=== PATIENT | male | born 1950 | race Caucasian/White ===

== ENCOUNTER 2016-10-15 19:32 | Emergency (ER) | payer BC, MEDICARE ==
[2016-10-15] MEDS ORDERED: Fluorescein Opthalmic Strip ONE (19:40)
--- NOTE | 2016-10-15 20:20 | ERRECORD ---
[facility] EMERGENCY RECORD HPI EYE COMPLAINT (19:59 [facility]) CHIEF COMPLAINT: Patient presents for evaluation of foreign body sensation, Patient presents for evaluation of pain, Patient presents for evaluation of redness. HISTORIAN: History provided by patient, 66M presents with foreign body sensation to primarily the left eye. Was working underneath the car when dust blew into his eyes. Has no visual changes but has the sensation of dust in his eyes, left much more than right. Denies other complaint. MECHANISM OF INJURY: Foreign Body. LOCATION: Symptoms are localized, most severe in the left eye. TIME COURSE: Sudden onset of symptoms, Symptoms are improving. ASSOCIATED WITH: Associated with foreign body sensation, Associated with tearing. ROS (20:02 [facility]) CONSTITUTIONAL: Negative constitutional review of systems, Historian denies chills, denies fever. EYES: Historian reports eye pain, reports eye redness, reports eye discharge, reports tearing. FB sensation L>R. ENT: Negative ears, nose, throat review of systems, Historian denies rhinorrhea, denies sore throat. CARDIOVASCULAR: Negative cardiovascular review of systems, Historian denies chest pain, denies palpitations. RESPIRATORY: Negative respiratory review of systems, Historian denies cough, denies shortness of breath. GI: Negative gastrointestinal review of systems, Historian denies abdominal pain, denies constipation, denies diarrhea, denies nausea, denies vomiting. GENITOURINARY MALE: Negative genitourinary review of systems, Historian denies dysuria, denies hematuria. MUSCULOSKELETAL: Negative musculoskeletal review of systems, Historian denies back pain, denies fall, denies injury, denies neck pain. SKIN: Negative skin review of systems, Historian denies rash, denies skin changes. NEUROLOGIC: Negative neurologic review of systems, Historian denies headache. HEMO/LYMPHATIC: Normal hematologic/lymphatic system review, Historian denies abnormal blood clotting. PAST MEDICAL HISTORY (19:46 [facility]) MEDICAL HISTORY: Notes: Gout, Flu vaccine not up to date, Tetanus not up to date, Pneumococcal vaccine not up to date, Past medical history includes cardiac history, unspecified arrhythmia, Past medical history includes history of hypertension. &a-1R&a+25V*p+0X*o5761I*c202B*c15G*c2P*p-0X&a-25V&a+1R Name: Be Kenney : 1950 M66 MedRec: [id number] AcctNum: [id number] Prepared: TueOct 15, 2016 20:06 by Interface Page 1 of 3 pMD [facility] EMERGENCY RECORD MALE SURGICAL HISTORY: Patient has no surgical history. PSYCHIATRIC HISTORY: No previous psychiatric history. SOCIAL HISTORY: Patient drinks socially, twice a month, Patient denies drug use, Patient is a former tobacco user, smoked cigarettes, Patient quit smoking more than 10 years ago. KNOWN ALLERGIES No Known Drug Allergies CURRENT MEDICATIONS (19:43 [facility]) lisinopril: TABLET : Strength - 20 mg : ORAL Patient Dose: 1 tab(s) Oral once a day (in the morning). VITAL SIGNS (19:39 [facility]AN) VITAL SIGNS: BP: 138/76, Pulse: 60, Resp: 18 (Non-Labored), Temp: 97.7 (Oral), Pain: 6, O2 sat: 98 on Room Air, Time: 10/15/2016 19:39. PHYSICAL EXAM (20:02 [facility]) CONSTITUTIONAL: Vital signs reviewed, Patient afebrile, Pulse normal, Blood pressure normal, Respiratory rate normal, Patient appears non toxic, Patient appears pain free, Patient alert and oriented to person, place and time. HEAD: Head exam normal, Head exam included findings of head atraumatic, normocephalic. EYES: Eye exam included findings of eyelids normal to inspection, Pupils equally round and reactive to light, Extraocular muscles intact, Conjunctiva, injected bilaterally, not edematous, L>R, Atraumatic, Fundoscopic exam normal, Eye exam included findings of anterior chamber clear, Fluorescein uptake normal, no conjunctival foreign body, no corneal foreign body, no corneal abrasion, No obvious abnormalities on exam including fluorescein exam. After anesthesia, eyes were thoroughly irrigated with NS. ENT: ENT exam normal, Ear exam normal, external ear normal, tympanic membranes normal, no bleeding, Pharynx exam normal, Uvula exam normal, Tonsil exam normal, Mouth exam normal, mucous membranes moist, teeth normal. NECK: Neck exam normal, Neck exam included findings of normal range of motion, Trachea midline, no meningeal signs, no cervical adenopathy, no tenderness. RESPIRATORY CHEST: Respiratory and chest exam normal, Respiratory exam included findings of no respiratory distress, Breath sounds clear. CARDIOVASCULAR: Cardiovascular assessment normal, Cardiovascular exam included findings of heart rate regular rate and rhythm, Heart sounds normal. ABDOMEN MALE: Abdominal exam included findings of abdomen nontender, Bowel sounds normal, no distension, no mass, no pulsatile &a-1R&a+25V*p+0X*k1097J*c202B*c15G*c2P*p-0X&a-25V&a+1R Name: Be Kenney : 1950 M66 MedRec: [id number] AcctNum: [id number] Prepared: TueOct 15, 2016 20:06 by Interface Page 2 of 3 pMD [facility] EMERGENCY RECORD masses, no peritoneal signs, no rigidity, no guarding, no rebound, Rovsing's sign absent. BACK: Back exam normal, Back exam included findings of normal inspection, range of motion normal, no tenderness. UPPER EXTREMITY: Upper extremity exam normal, Upper extremity exam included findings of inspection normal, Range of motion normal, Motor strength normal, Sensation intact, Radial pulse normal. LOWER EXTREMITY: Lower extremity exam normal, Lower extremity exam included findings of inspection normal, Range of motion normal, Motor strength normal, Sensation intact, Posterior tibial pulse normal, Pedal pulse normal. NEURO: Neuro exam normal, Neuro exam findings include patient oriented to person, place and time, Speech normal, Gait normal. SKIN: Skin exam normal, Skin exam included findings of skin warm, dry, and normal in color, no rash. PSYCHIATRIC: Psychiatric exam normal, Normal affect. DOCTOR NOTES (20:04 [facility]) TEXT: Patient presented with FB sensation in L>R eye. Exam was normal except for mild conjunctival irritation, but not evidence of abrasion. Irrigation performed. Symptoms should improve with time. PATIENT PLAN: The patient will be discharged, The patient will follow up with primary care physician. PROBLEM LIST No recorded problems DIAGNOSIS (19:58 [facility]) FINAL: PRIMARY: UNSPECIFIED CONJUNCTIVITIS. PRESCRIPTION No recorded prescriptions DISPOSITION PATIENT: Disposition Type: Discharge, Disposition: *Discharge Home. (19:58 [facility]) Condition: Good, Patient left the department. (20:04 [facility]) Mon: CHAPO=MD Nidia, Driss ABURTO=EILEEN Lagunas, Una &a-1R&a+25V*p+0X*c1834Q*c202B*c15G*c2P*p-0X&a-25V&a+1R Name: Be Kenney : 1950 M66 MedRec: [id number] AcctNum: [id number] Prepared: TueOct 15, 2016 20:06 by Interface Page 3 of 3 pMD MTDD
--- NOTE | 2016-10-15 20:22 | PICIS ---
[facility] EMERGENCY RECORD TRIAGE (TueOct 15, 2016 19:42 WJAN) TRIAGE NOTES: Working on car when something blew into left eye, washed eye with saline solution [employer], no relief. (TueOct 15, 2016 19:42 WJAN) PATIENT: NAME: Be Kenney, AGE: 66, GENDER: male, : Tue1950, TIME OF GREET: TueOct 15, 2016 19:33, PREFERRED LANGUAGE: Mosotho, ECODE BILLING MAP: [facility], SSN: [id number], KG WEIGHT: 97.52, , , PERSON ID: [id number], PCP: Shari VELASCO. (TueOct 15, 2016 19:42 WJAN) ETHNICITY: Not or , Zip Code: [address], PHONE: , PAYMENT: [employer]. (19:53) COMPLAINT: Left eye pain. (TueOct 15, 2016 19:42 WJAN) ADMISSION: URGENCY: 4 Non Urgent, ADMISSION SOURCE: Home, TRANSPORT: Walk-in, BED: TRIAGE. (TueOct 15, 2016 19:42 WJAN) ASSESSMENT: Additional Triage notes: Pt reports he may have something in his left eye. Pt A&Ox4, NAD, breathing non-labored. (19:46 [facility]AN) IMMUNIZATIONS: Flu vaccine up to date, Tetanus immunization up to date, Pneumococcal vaccine up to date. (19:46 WJAN) SIRS SCORING: Heart Rate 55-109 (0), Temp range 96.8-101.1 (0), respiratory rate 12-24 (0), Mental Status altered: no (0), Infection or Suspected Infection: No. (19:46 WJAN) TRIAGE SCREENING: Patient denies suicidal ideation, Patient denies presence of domestic violence. (19:46 WJAN) PROVIDERS: TRIAGE NURSE: Una Lagunas RN. (TueOct 15, 2016 19:42 WJAN) VITAL SIGNS: BP 138/76, Pulse 60, Resp 18, (Non-Labored), Temp 97.7, (Oral), Pain 6, O2 Sat 98, on Room Air, Time 10/15/2016 19:39. (19:39 WJAN) KNOWN ALLERGIES No Known Drug Allergies CURRENT MEDICATIONS (19:43 [facility]) lisinopril: TABLET : Strength - 20 mg : ORAL Patient Dose: 1 tab(s) Oral once a day (in the morning). VITAL SIGNS (19:39 [facility]) VITAL SIGNS: BP: 138/76, Pulse: 60, Resp: 18 (Non-Labored), Temp: 97.7 (Oral), Pain: 6, O2 sat: 98 on Room Air, Time: 10/15/2016 19:39. NURSING ASSESSMENT: EYE (19:47 [facility]AN) CONSTITUTIONAL: Patient arrives ambulatory, Gait steady, History obtained from patient, Patient appears comfortable, Patient cooperative, Patient alert, Oriented to person, place and time, Skin warm, Skin dry, Skin normal in color, Mucous membranes pink, Mucous membranes moist, Patient is well-groomed, Patient complains of Left eye pain, Pt reports working on car and something blew into his &a-1R&a+25V*p+0X*h2505L*c202B*c15G*c2P*p-0X&a-25V&a+1R Name: Be Kenney : 1950 M66 MedRec: [id number] AcctNum: [id number] Prepared: TueOct 15, 2016 20:13 by Interface Page 1 of 5 pMD [facility] EMERGENCY RECORD eyes, right eye o longer hurts but left eye has not improved after flushing at home with saline solution. PAIN: Left eye, on a scale 0-10 patient rates pain as 6. EYES: Eye assessment findings include orbits normal, Eye lids normal, Conjunctiva normal, Sclera normal, Cornea clear, Iris normal, Pupils equally round and reactive to light. SAFETY: Side rails up, Cart/Stretcher in lowest position, Family at bedside, Call light within reach, Hospital ID band on. NURSING PROCEDURE: DISCHARGE NOTE (20:02 WJAN) DISCHARGE: Patient discharged to home, ambulating without assistance, family driving, accompanied by //partner, Summary of Care printed/ provided, Patient requested and was provided an electronic copy of Discharge Instructions, Transition record given to patient, Discharge instructions given to patient, Simple or moderate discharge teaching performed, by EILEEN Heart, Notes: Patient instructed to follow up with PCP. Patient instructed to follow medication instructions. Patient instructed to follow discharge teaching. BELONGINGS: Belongings remain with patient, Valuables remain with patient. SAFETY: Side rails up, Cart/Stretcher in lowest position, Family at bedside, Call light within reach, Hospital ID band on. NURSING PROCEDURE: NURSE NOTES (19:45 [facility]) NURSES NOTES: Notes: MD at bedside. HPI EYE COMPLAINT (19:59 [facility]) CHIEF COMPLAINT: Patient presents for evaluation of foreign body sensation, Patient presents for evaluation of pain, Patient presents for evaluation of redness. HISTORIAN: History provided by patient, 66M presents with foreign body sensation to primarily the left eye. Was working underneath the car when dust blew into his eyes. Has no visual changes but has the sensation of dust in his eyes, left much more than right. Denies other complaint. MECHANISM OF INJURY: Foreign Body. LOCATION: Symptoms are localized, most severe in the left eye. TIME COURSE: Sudden onset of symptoms, Symptoms are improving. ASSOCIATED WITH: Associated with foreign body sensation, Associated with tearing. ROS (20:02 [facility]) CONSTITUTIONAL: Negative constitutional review of systems, Historian denies chills, denies fever. EYES: Historian reports eye pain, reports eye redness, reports eye discharge, reports &a-1R&a+25V*p+0X*o0553W*c202B*c15G*c2P*p-0X&a-25V&a+1R Name: Be Kenney : 1950 M66 MedRec: [id number] AcctNum: [id number] Prepared: TueOct 15, 2016 20:13 by Interface Page 2 of 5 pMD [facility] EMERGENCY RECORD tearing. FB sensation L>R. ENT: Negative ears, nose, throat review of systems, Historian denies rhinorrhea, denies sore throat. CARDIOVASCULAR: Negative cardiovascular review of systems, Historian denies chest pain, denies palpitations. RESPIRATORY: Negative respiratory review of systems, Historian denies cough, denies shortness of breath. GI: Negative gastrointestinal review of systems, Historian denies abdominal pain, denies constipation, denies diarrhea, denies nausea, denies vomiting. GENITOURINARY MALE: Negative genitourinary review of systems, Historian denies dysuria, denies hematuria. MUSCULOSKELETAL: Negative musculoskeletal review of systems, Historian denies back pain, denies fall, denies injury, denies neck pain. SKIN: Negative skin review of systems, Historian denies rash, denies skin changes. NEUROLOGIC: Negative neurologic review of systems, Historian denies headache. HEMO/LYMPHATIC: Normal hematologic/lymphatic system review, Historian denies abnormal blood clotting. PAST MEDICAL HISTORY (19:46 [facility]) MEDICAL HISTORY: Notes: Gout, Flu vaccine not up to date, Tetanus not up to date, Pneumococcal vaccine not up to date, Past medical history includes cardiac history, unspecified arrhythmia, Past medical history includes history of hypertension. MALE SURGICAL HISTORY: Patient has no surgical history. PSYCHIATRIC HISTORY: No previous psychiatric history. SOCIAL HISTORY: Patient drinks socially, twice a month, Patient denies drug use, Patient is a former tobacco user, smoked cigarettes, Patient quit smoking more than 10 years ago. PHYSICAL EXAM (20:02 [facility]) CONSTITUTIONAL: Vital signs reviewed, Patient afebrile, Pulse normal, Blood pressure normal, Respiratory rate normal, Patient appears non toxic, Patient appears pain free, Patient alert and oriented to person, place and time. HEAD: Head exam normal, Head exam included findings of head atraumatic, normocephalic. EYES: Eye exam included findings of eyelids normal to inspection, Pupils equally round and reactive to light, Extraocular muscles intact, Conjunctiva, injected bilaterally, not edematous, L>R, Atraumatic, Fundoscopic exam normal, Eye exam included findings of anterior chamber clear, Fluorescein uptake normal, no conjunctival foreign body, no corneal foreign body, no corneal abrasion, No obvious abnormalities on exam including fluorescein exam. After anesthesia, eyes were thoroughly irrigated &a-1R&a+25V*p+0X*q3059X*c202B*c15G*c2P*p-0X&a-25V&a+1R Name: Be Kenney : 1950 M66 MedRec: [id number] AcctNum: [id number] Prepared: TueOct 15, 2016 20:13 by Interface Page 3 of 5 pMD [facility] EMERGENCY RECORD with NS. ENT: ENT exam normal, Ear exam normal, external ear normal, tympanic membranes normal, no bleeding, Pharynx exam normal, Uvula exam normal, Tonsil exam normal, Mouth exam normal, mucous membranes moist, teeth normal. NECK: Neck exam normal, Neck exam included findings of normal range of motion, Trachea midline, no meningeal signs, no cervical adenopathy, no tenderness. RESPIRATORY CHEST: Respiratory and chest exam normal, Respiratory exam included findings of no respiratory distress, Breath sounds clear. CARDIOVASCULAR: Cardiovascular assessment normal, Cardiovascular exam included findings of heart rate regular rate and rhythm, Heart sounds normal. ABDOMEN MALE: Abdominal exam included findings of abdomen nontender, Bowel sounds normal, no distension, no mass, no pulsatile masses, no peritoneal signs, no rigidity, no guarding, no rebound, Rovsing's sign absent. BACK: Back exam normal, Back exam included findings of normal inspection, range of motion normal, no tenderness. UPPER EXTREMITY: Upper extremity exam normal, Upper extremity exam included findings of inspection normal, Range of motion normal, Motor strength normal, Sensation intact, Radial pulse normal. LOWER EXTREMITY: Lower extremity exam normal, Lower extremity exam included findings of inspection normal, Range of motion normal, Motor strength normal, Sensation intact, Posterior tibial pulse normal, Pedal pulse normal. NEURO: Neuro exam normal, Neuro exam findings include patient oriented to person, place and time, Speech normal, Gait normal. SKIN: Skin exam normal, Skin exam included findings of skin warm, dry, and normal in color, no rash. PSYCHIATRIC: Psychiatric exam normal, Normal affect. EVENTS TRANSFER: Triage to Emergency Triage. (TueOct 15, 2016 19:42 WJAN) Emergency Triage to Emergency Room -02. (19:46 WJAN) Removed from Emergency Emergency Room -02. (20:04 WJAN) DOCTOR NOTES (20:04 [facility]) TEXT: Patient presented with FB sensation in L>R eye. Exam was normal except for mild conjunctival irritation, but not evidence of abrasion. Irrigation performed. Symptoms should improve with time. PATIENT PLAN: The patient will be discharged, The patient will follow up with primary care physician. PROBLEM LIST No recorded problems &a-1R&a+25V*p+0X*x0142F*c202B*c15G*c2P*p-0X&a-25V&a+1R Name: Be Kenney : 1950 M66 MedRec: [id number] AcctNum: [id number] Prepared: TueOct 15, 2016 20:13 by Interface Page 4 of 5 pMD [facility] EMERGENCY RECORD DIAGNOSIS (19:58 [facility] FINAL: PRIMARY: UNSPECIFIED CONJUNCTIVITIS. DISPOSITION PATIENT: Disposition Type: Discharge, Disposition: *Discharge Home. (19:58 JJA) Condition: Good, Patient left the department. (20:04 [facility]) INSTRUCTION (19:59 [facility]) DISCHARGE: EYE FOREIGN BODY CONJUNCTIVAL RESOLVED. FOLLOWUP: KRISTA, Shari, [facility], [address] [place] [address], [facility] , [phone]. SPECIAL: Return to the ED if you develop worsening pain or vision changes. PRESCRIPTION No recorded prescriptions IMAGING (:04 WSEP) *DISCHARGE INSTRUCTIONS RECEIPT: Image captured from scanner. *SUPPLY CHARGE SHEET: Image captured from scanner. ADMIN (20:04 JJA) DIGITAL SIGNATURE: MD Jacob Jason. Mon: CHAPO=MD Jacob Jason WJAN=EILEEN Lagunas, Una &a-1R&a+25V*p+0X*b5137C*c202B*c15G*c2P*p-0X&a-25V&a+1R Name: Be Kenney : 1950 M66 MedRec: [id number] AcctNum: [id number] Prepared: TueOct 15, 2016 20:13 by Interface Page 5 of 5 pMD MTDD
== END 2016-10-15 20:02 | disposition home or self-care (01) ==
LOC: BURERS 19:32
DX: H10.9 Unspecified conjunctivitis (principal); I10 Essential (primary) hypertension
CPT/HCPCS: 99283